=== PATIENT | male | born 2000 | race Hispanic/Latino ===

== ENCOUNTER 2021-02-10 00:29 | Emergency (ER) | payer OTHER ==
[2021-02-10 00:56] LABS: Urine Blood 3+ (Negative); Urine Glucose Negative (Negative); Urine Protein 1+ (Negative); Urine Specific Gravity 1.025 (1.005-1.030); Urine pH 7.5 (5.0-7.0)
[2021-02-10 01:01] LABS: Urine Bacteria <20 /HPF (NONE SEEN); Urine RBC 20-50 /HPF (NONE SEEN)
--- NOTE | 2021-02-10 02:12 | ER ---
Nurse's Notes [facility] Name: Baljit Jimenez Age: 20 yrs Sex: Male : 2000 Arrival Date: 02/10/2021 Time: 00:34 Bed 13 Private MD: Diagnosis: UTI/ Urinary tract infection, site not specified Presentation: 02/10 01:00 Chief complaint: Patient states: blood in urine, burning in urination. Coronavirus fu screen: Vaccine status: Patient reports being unvaccinated. Ebola Screen: No symptoms or risks identified at this time. Initial Sepsis Screen: Does the patient meet any 2 criteria? No. Patient's initial sepsis screen is negative. Does the patient have a suspected source of infection? No. Patient's initial sepsis screen is negative. Risk Assessment: Do you want to hurt yourself or someone else? Patient reports no desire to harm self or others. Onset of symptoms. Onset of symptoms is unknown. 01:00 Method Of Arrival: Ambulatory fu 01:00 Acuity: DENISSE 4 fu Triage Assessment: 01:07 General: Appears in no apparent distress. Behavior is calm, cooperative, appropriate fu for age. Pain: Denies pain. Historical: - Allergies: 01:06 No Known Allergies; fu - Home Meds: 01:06 None [Active]; fu - PMHx: 01:06 None; fu - PSHx: 01:06 None; fu - Immunization history:: Client reports having NOT received the Covid vaccine. Flu vaccine is not up to date. - Social history:: Smoking status: Patient reports the use of cigarette tobacco products, smokes one-half pack cigarettes per day. Screenin:10 Abuse screen: Denies threats or abuse. Nutritional screening: No deficits noted. fu Tuberculosis screening: No symptoms or risk factors identified. Fall Risk None identified. Assessment: 01:09 General: Appears in no apparent distress. Behavior is calm, cooperative, appropriate fu for age, Denies fever, feeling ill, fatigue, chills. Pain: Denies pain. Neuro: Level of Consciousness is awake, alert, obeys commands, Oriented to person, place, time, situation, Table Runner are equal bilaterally Moves all extremities. Gait is steady, Speech is normal, Facial symmetry appears normal. Cardiovascular: No deficits noted. Respiratory: No deficits noted. GI: No deficits noted. : Reports burning with urination, since 2-3 weeks ago blood in urine. Derm: No signs and/or symptoms reported regarding the dermatologic system. Musculoskeletal: No signs and/or symptoms reported regarding the musculoskeletal system. 01:45 Reassessment: Patient and/or family updated on plan of care and expected duration. Pain fu level reassessed. Patient is alert, oriented x 3, equal unlabored respirations, skin warm/dry/pink. 02:13 Reassessment: Patient and/or family updated on plan of care and expected duration. Pain fu level reassessed. Patient is alert, oriented x 3, equal unlabored respirations, skin warm/dry/pink. Provider in patient's room. Vital Signs: 01:00 BP 123 / 70; Pulse 67; Resp 16; Temp 98.2(O); Pulse Ox 100% on R/A; Weight 63.5 kg; fu Height 5 ft. 6 in. (167.64 cm) (R); Pain 0/10; 01:07 BP 123 / 70; Pulse 67; Resp 16; Temp 98.2(O); Pulse Ox 100% on R/A; Pain 0/10; fu 01:34 BP 117 / 71; Pulse 61; Resp 16; Pulse Ox 100% on R/A; Pain 0/10; fu 01:00 Body Mass Index 22.60 (63.50 kg, 167.64 cm) fu ED Course: 00:34 Patient arrived in ED. wm 00:36 [facility] Lug[facility]C [facility] kb 00:36 Emmett Naqvi MD is Attending Physician. kb 00:46 Miguelito Rodriguez, EDUARDO is Primary Nurse. fu 01:06 Triage completed. fu 01:08 Arm band placed on right wrist. fu 01:10 Patient has correct armband on for positive identification. Bed in low position. Call fu light in reach. Pulse ox on. NIBP on. 01:11 No provider procedures requiring assistance completed. fu 01:25 CT Stone Protocol In Process Unspecified. EDMS 02:19 Patient did not have IV access during this emergency room visit. fu Administered Medications: No medications were administered Outcome: 02:11 Discharge ordered by . kb 02:18 Discharged to home ambulatory. fu 02:18 Condition: good 02:18 Discharge instructions given to patient, Instructed on discharge instructions, follow up and referral plans. Demonstrated understanding of instructions, follow-up care, Prescriptions given X 1. 02:21 Patient left the ED. fu Signatures: Dispatcher [employer] Felicia Gonzalez FNP-C FNP-Ckb Umadhay, Felix RN RN Bettye Wagner Corrections: (The following items were deleted from the chart) 01:09 01:00 BP 123 / 70; Pulse 67bpm; Resp 16bpm; Pulse Ox 100% RA; Temp 98.2F Oral; Height 5 fu ft. 4 in. Reported; Pain 0/10; fu 02:13 02:12 Reassessment: Patient and/or family updated on plan of care and expected fu duration. Pain level reassessed. Patient is alert, oriented x 3, equal unlabored respirations, skin warm/dry/pink. fu
--- NOTE | 2021-02-10 02:12 | EDPHYS ---
Physician Documentation [facility] Name: Baljit Jimenez Age: 20 yrs Sex: Male : 2000 Arrival Date: 02/10/2021 Time: 00:34 Bed 13 Private MD: ED Physician Emmett Naqvi HPI: 02/10 00:43 This 20 yrs old Male presents to ER via Unassigned with complaints of Urinary kb Problem - Blood in urine. 00:43 The patient presents with urinary symptoms, dysuria. Onset: The symptoms/episode kb began/occurred 2 week(s) ago. Modifying factors: The symptoms are alleviated by nothing, the symptoms are aggravated by nothing. Associated signs and symptoms: Pertinent positives: dysuria, hematuria, Pertinent negatives: abdominal pain, constipation, diarrhea, fever, nausea, vomiting. Severity of symptoms: At their worst the symptoms were moderate, in the emergency department the symptoms are unchanged. The patient has not experienced similar symptoms in the past. The patient has not recently seen a physician. Pt reports hematuria, urgency and dysuria for 2-3 weeks. States he took some of his girlfriends antibiotics for a UTI, but is still have the symptoms. Had left flank pain that resolved after antibiotics. . Historical: - Allergies: 01:06 No Known Allergies; fu - Home Meds: 01:06 None [Active]; fu - PMHx: 01:06 None; fu - PSHx: 01:06 None; fu - Immunization history:: Client reports having NOT received the Covid vaccine. Flu vaccine is not up to date. - Social history:: Smoking status: Patient reports the use of cigarette tobacco products, smokes one-half pack cigarettes per day. ROS: 00:43 Constitutional: Negative for fever, chills, and weight loss. kb 00:43 : Positive for urinary symptoms, hematuria, burning with urination. 00:43 All other systems are negative. Exam: 00:43 Constitutional: This is a well developed, well nourished patient who is awake, alert, kb and in no acute distress. Head/Face: Normocephalic, atraumatic. ENT: Moist Mucous membranes Respiratory: Respirations even and unlabored. No increased work of breathing, no retractions or nasal flaring. Back: No spinal tenderness. No costovertebral tenderness. Full range of motion. Skin: Warm, dry with normal turgor. Normal color. MS/ Extremity: Pulses equal, no cyanosis. Neurovascular intact. Full, normal range of motion. Neuro: Awake and alert, GCS 15, oriented to person, place, time, and situation. Moves all extremities. Normal gait. Psych: Awake, alert, with orientation to person, place and time. Behavior, mood, and affect are within normal limits. 01:00 Abdomen/GI: Inspection: abdomen appears normal, Bowel sounds: normal, Palpation: soft, kb in all quadrants, mild abdominal tenderness, in the left lower quadrant. Vital Signs: 01:00 BP 123 / 70; Pulse 67; Resp 16; Temp 98.2(O); Pulse Ox 100% on R/A; Weight 63.5 kg; fu Height 5 ft. 6 in. (167.64 cm) (R); Pain 0/10; 01:07 BP 123 / 70; Pulse 67; Resp 16; Temp 98.2(O); Pulse Ox 100% on R/A; Pain 0/10; fu 01:34 BP 117 / 71; Pulse 61; Resp 16; Pulse Ox 100% on R/A; Pain 0/10; fu 01:00 Body Mass Index 22.60 (63.50 kg, 167.64 cm) fu MDM: 00:37 Patient medically screened. kb 00:42 Data reviewed: vital signs, nurses notes. Data interpreted: Pulse oximetry: on room air kb is 100 %. Interpretation: normal. 02:10 Counseling: I had a detailed discussion with the patient and/or guardian regarding: the kb historical points, exam findings, and any diagnostic results supporting the discharge/admit diagnosis, lab results, radiology results, the need for outpatient follow up, a family practitioner, to return to the emergency department if symptoms worsen or persist or if there are any questions or concerns that arise at home. 02/10 00:40 Order name: Urine Microscopic Only; Complete Time: 01:02 kb 02/10 00:56 Order name: Urine Dipstick-Ancillary; Complete Time: 00:58 EDMS 02/10 00:40 Order name: Urine Dipstick-Ancillary (obtain specimen); Complete Time: 00:56 kb 02/10 00:40 Order name: CT Stone Protocol kb 02/10 01:02 Order name: Urine Culture EDMS Administered Medications: No medications were administered Disposition: 07:37 Co-signature as Attending Physician, Emmett Naqvi MD. [email or web address] Disposition Summary: 02/10/21 02:11 Discharge Ordered Location: Home kb Condition: Stable kb Diagnosis - UTI/ Urinary tract infection, site not specified kb Followup: kb - With: Emergency Department - When: As needed - Reason: Worsening of condition Followup: kb - With: Private Physician - When: 2 - 3 days - Reason: Recheck today's complaints, Continuance of care, Re-evaluation by your physician Discharge Instructions: - Discharge Summary Sheet kb - Urinary Tract Infection, Adult, [id number] kb Forms: - Medication Reconciliation Form kb - Thank You Letter kb - Antibiotic Education kb - Prescription Opioid Use kb - Work release form fu Prescriptions: - Augmentin 875-125 mg Oral Tablet - take 1 tablet by ORAL route every 12 hours for 10 days; 20 tablet; Refills: 0, kb Product Selection Permitted Signatures: Dispatcher [employer] EDOH Felicia Lugo FNP-C FNP-Ckb Umadhay, Felix, RN RN fu Holmes, Maurice, MD MD [email or web address] Corrections: (The following items were deleted from the chart) 01:01 00:43 Constitutional: This is a well developed, well nourished patient who is awake, kb alert, and in no acute distress. Head/Face: Normocephalic, atraumatic. ENT: Moist Mucous membranes Respiratory: Respirations even and unlabored. No increased work of breathing, no retractions or nasal flaring. Abdomen/GI: Soft, non-tender. No distention Back: No spinal tenderness. No costovertebral tenderness. Full range of motion. Skin: Warm, dry with normal turgor. Normal color. MS/ Extremity: Pulses equal, no cyanosis. Neurovascular intact. Full, normal range of motion. Neuro: Awake and alert, GCS 15, oriented to person, place, time, and situation. Moves all extremities. Normal gait. Psych: Awake, alert, with orientation to person, place and time. Behavior, mood, and affect are within normal limits. kb
[2021-02-10 02:27] VITALS: TEMP 98.2; O2SAT 100
[2021-02-10 02:30] VITALS: BP 117/71
--- NOTE | 2021-02-10 14:49 | RAD REPORT ---
EXAM DESCRIPTION: CT Abdomen and Pelvis Without Intravenous Contrast CLINICAL HISTORY: The patient is 20 years old and is Male; HEMATURIA TECHNIQUE: Axial computed tomography images of the abdomen and pelvis without intravenous contrast. Sagittal and coronal reformatted images were created and reviewed. This CT exam was performed usi ng one or more of the following dose reduction techniques: automated exposure control, adjustment o f the mA and/or kV according to patient size, and/or use of iterative reconstruction technique. COMPARISON: No relevant prior studies available. FINDINGS: Limitations: Evaluation is limited by a paucity of intra-abdominal fat. Lung bases: Unremarkable. No mass. No consolidation. ABDOMEN: Liver: Unremarkable. Gallbladder and bile ducts: Gallbladder is contracted. No calcified stones. No ductal dilation. Pancreas: Unremarkable. No ductal dilation. Spleen: Unremarkable. No splenomegaly. Adrenals: Unremarkable. No mass. Kidneys and ureters: No evidence of nephrolithiasis. No hydronephrosis. Stomach and bowel: Unremarkable. No obstruction. No mucosal thickening. PELVIS: Appendix: No findings to suggest acute appendicitis. Bladder: There is the suggestion of mild diffuse bladder wall thickening, but the bladder is nond istended limiting evaluation. No stones. Reproductive: Unremarkable as visualized. ABDOMEN and PELVIS: Intraperitoneal space: Unremarkable. No free air. No significant fluid collection. Bones/joints: No acute fracture. No dislocation. Soft tissues: See above. Vasculature: Unremarkable. No abdominal aortic aneurysm. Lymph nodes: Unremarkable. No enlarged lymph nodes. IMPRESSION: 1. No evidence of nephrolithiasis. 2. There is the suggestion of mild diffuse bladder wall thickening, but the bladder is nondistended limiting evaluation. Correlate with any concern for cystitis. Electronically signed by: Shane Rivera MD 02/10/2021 1:59 AM CDT Due to temporary technical issues with the PACS/Fluency reporting system, reports are being signed by the in house radiologists without review as a courtesy to insure prompt reporting. The interpreting radiologist is fully responsible for the content of the report.
== END 2021-02-10 02:21 | disposition home or self-care (01) ==
LOC: ER 00:29
DX: N39.0 Urinary tract infection, site not specified (principal)
CPT/HCPCS: 74176; 76377; 81003; 81015; 87086; 87088; 99283

== ENCOUNTER 2021-12-03 21:24 | Emergency (ER) | payer OTHER ==
--- OUTSIDE RECORDS SUMMARY | 2021-12-03 21:26 | XMS REPORT | Continuity of Care Document ---
:2000 Author Organization [facility] t Address [address] [place] [address] Care Team Providers Name Role Phone CATHRYN Attending Clinician Unavailable Pradeep_Camryn Attending Clinician Unavailable A_Neville Attending Clinician Unavailable MARYLIN CHARLES Attending Clinician Unavailable Konrad Attending Clinician Unavailable CATHRYN Admitting Clinician Unavailable Pradeep_Camryn Admitting Clinician Unavailable Callie_Bymike Admitting Clinician Unavailable Shield Admitting Clinician Unavailable Payers Payer Name Policy Type Policy Number Effective Date Expiration Date [facility] [id number] [facility] (MEDICAID REPLACEMENT - HMO) [facility] [id number] [facility] (MEDICAID REPLACEMENT - HMO) [facility] [id number] 2016 [facility] MEDICAID 00:00:00 Problems Condition Condition Condition Status Onset Resolution Last Treating Co mments Source Name Details Category Date Date Treatment Clinician Date Pubertal Pubertal Problem Active 2019-04 [place] [facility] gynecomast Gynecomast 1-25 da ia ia 00:00: Medical 00 Group Unintentio Unintentio Problem Active 2018-04 [facility] nal weight nal Weight 2-02 da loss Loss 00:00: Medical 00 Group Well child Well Child Problem Active 2018-04 [facility] 2-02 da 00:00: Medical 00 Group Upper Upper Problem Active [place] respirator Respirator da y y Medical infection Infection Grou p Contact Contact Problem Active [facility] dermatitis Dermatitis [facility] Abdominal Abdominal Problem Active [facility] pain Pain [facility] Allergies, Adverse Reactions, Alerts Allergy Allergy Status Severity Reaction(s) Onset Inactive Treating Comm ents Source Name Type Date Date Clinician NO KNOWN Drug Active Univers ALLERGIE Class ity of [facility] Social History Smoking Status Start Date Stop Date Source Current Some Day Smoker [facility] Medications This patient has no known medications. Immunizations Ordered Immunization Filled Immunization Date Status Commen ts Source Name Name influenza, influenza, 2019-03-21 Completed [facility] injectable, injectable, 17:56:31 Medical Grou p quadrivalent, quadrivalent, preservative free preservative free meningococcal MCV4P meningococcal MCV4P 2019-03-21 Completed [facility] 17:55:49 Medical Group Vital Signs Vital Name Observation Time Observation Value Comments Source BP Diastolic 2020-10-29 00:00:00 65 mm[Hg] [facility] Height 2020-10-29 00:00:00 65.5 [in_i] [facility] BMI (Body Mass 2020-10-29 00:00:00 21 kg/m2 [facility] [employer] [facility] Group BP Systolic 2020-10-29 00:00:00 107 mm[Hg] [facility] Body Weight 2020-10-29 00:00:00 2049.6 [oz_av] [facility] BP Diastolic 2020-04-02 00:00:00 73 mm[Hg] [facility] Height 2020-04-02 00:00:00 67 [in_i] [facility] BMI (Body Mass 2020-04-02 00:00:00 20.9 kg/m2 [facility] [employer] [facility] Group BP Systolic 2020-04-02 00:00:00 115 mm[Hg] [facility] Body Weight 2020-04-02 00:00:00 2137 [oz_av] [facility] BP Diastolic 2020-03-14 00:00:00 74 mm[Hg] [facility] Height 2020-03-14 00:00:00 67 [in_i] [facility] BMI (Body Mass 2020-03-14 00:00:00 20.5 kg/m2 [facility] [employer] [facility]) Group BP Systolic 2020-03-14 00:00:00 118 mm[Hg] [facility] Body Weight 2020-03-14 00:00:00 2096 [oz_av] [facility] BP Diastolic 2019-06-08 00:00:00 67 mm[Hg] [facility] Height 2019-06-08 00:00:00 67 [in_i] [facility] BMI (Body Mass 2019-06-08 00:00:00 20.4 kg/m2 [facility] [employer] [facility] Group BP Systolic 2019-06-08 00:00:00 102 mm[Hg] [facility] Body Weight 2019-06-08 00:00:00 2086 [oz_av] [facility] BP Diastolic 2019-05-24 00:00:00 78 mm[Hg] [facility] Height 2019-05-24 00:00:00 67 [in_i] [facility] BMI (Body Mass 2019-05-24 00:00:00 20.4 kg/m2 [facility] [employer] [facility] Group BP Systolic 2019-05-24 00:00:00 113 mm[Hg] [facility] Body Weight 2019-05-24 00:00:00 2088 [oz_av] [facility] BP Diastolic 2019-04-28 00:00:00 71 mm[Hg] [facility] Height 2019-04-28 00:00:00 67 [in_i] [facility] BMI (Body Mass 2019-04-28 00:00:00 20.4 kg/m2 [facility] [employer] [facility] BP Systolic 2019-04-28 00:00:00 110 mm[Hg] [facility] Body Weight 2019-04-28 00:00:00 2084 [oz_av] [facility] BMI (Body Mass 2019-01-27 00:00:00 21.7 kg/m2 [facility] [employer] [facility] BP Systolic 2019-01-27 00:00:00 95 mm[Hg] [facility] Body Weight 2019-01-27 00:00:00 2184 [oz_av] [facility] BP Diastolic 2019-01-27 00:00:00 55 mm[Hg] [facility] Height 2019-01-27 00:00:00 66.5 [in_i] [facility] Procedures Procedure Date / Time Performed Performing Clinician Sour e CT, head, w/o contrast 2020-10-29 00:00:00 [facility] Plan of Care Planned Activity Planned Date Details Comments Source Instructions [facility] Encounters Start End Encounter Admission Attending Care Care Encounter Source Date/Time Date/Time Type Type Clinicians Facility Department ID 2021-11-14 2021-11-14 Outpatient STEPH_EMIR BORGES [id number] [place] 00:00:00 00:00:00 FOUZIA 07Corie [facility] 2020-10-29 2020-10-29 Outpatient Hawkins_M [facility] MMG [id number] [place] 03:04:00 03:04:00 0712 [facility] 2020-10-29 2020-10-29 Beat[place] [facility] [place] - [id number] [facility] 00:00:00 00:00:00 [facility] [employer] TRUCKER: [address] [facility] [address], [place] [address] , Ph. 2020-04-25 2020-04-25 Outpatient Hawkins_M MMG MMG [id number] [place] 09:46:00 09:46:00 0106 [facility] 2020-04-25 2020-04-25 Outpatient Hawkins_M MM[facility] MMG [id number] [place] 09:46:00 09:46:00 0219 [facility] 2020-04-02 2020-04-02 Outpatient Hawkins_M MMG MMG [id number] [place] 10:28:00 10:28:00 1214 [facility] 2020-04-02 2020-04-02 Outpatient Hawkins_M MMG MMG [id number] [place] 10:28:00 10:28:00 1216 [facility] 2020-04-02 2020-04-02 Beatrice [facility] [place] - [id number] [facility] 00:00:00 00:00:00 [facility] [employer] TRUCK[facility]: [address] [facility] [address], [place] [address] , Ph. 2020-03-14 2020-03-14 Outpatient A_Byrd MMG MMG [id number] [place] 12:36:00 12:36:00 1125 [facility] 2020-03-14 2020-03-14 Tc N MMG [place] - [id number] [facility] 00:00:00 00:00:00 MD Neville: [address], [place] [address] , Ph. 2020-03-13 2020-03-13 Outpatient A_Byrd MMG MMG [id number] [place] 03:44:00 03:44:00 1124 [facility] 2019-06-14 2019-06-14 Outpatient Rhina MELVIN, [facility] [id number] Univers 13:00:00 13:00:[address] [facility] 2019-06-08 2019-06-08 Outpatient A_Byrd MMG MMG [id number] [place] 05:46:00 05:46:00 0219 [facility] 2019-06-08 2019-06-08 Tc N MMG [place] - [id number] [facility] 00:00:00 00:00:00 MD Neville: [address], [place] [address] , Ph. 2019-05-25 2019-05-25 Outpatient Shield MMG MMG [id number] [place] 06:41:00 06:41:00 0205 [facility] 2019-05-24 2019-05-24 Outpatient Shield MMG MMG [id number] [place] 10:48:00 10:48:00 0204 Medical [facility] 2019-05-24 2019-05-24 Tc N MMG [place] - [id number] [facility] 00:00:00 00:00:00 MD Neville: [address], [place] [address] , Ph. 2019-04-28 2019-04-28 Outpatient Shield MMG MMG [id number] [place] 09:28:00 09:28:00 0109 Medical Group 2019-04-28 2019-04-28 Tc N MMG [place] - [id number] [facility] 00:00:00 00:00:00 MD Neville: Discovery jennings [address], [facility] [place] [address] , Ph. 2019-04-15 2019-04-15 Outpatient Shield [facility] [id number] [place] 10:28:00 10:28:00 0108 [facility] 2019-01-27 2019-01-27 [facility] [place] - [id number] [facility] 00:00:00 00:00:00 Discovery michaela Silvestre FREIGHT TRUCKER: [address] [facility] - [address], [facility], [place] [address] , Ph. Results Test Description Test Time Test Comments Results Result Comments Source CBC W Auto Differential panel - Blood 2019-04-28 10:28:00 Test Item Value Reference Range Interpretation Comme nts white blood count (test code = white blood count) 7.2 K/uL 4.0- 12.3 red blood count (test code = red blood count) 5.03 M/uL 3.80-5.8 0 hemoglobin (test code = hemoglobin) 14.9 g/dL 13-16 hematocrit (test code = hematocrit) 46.0 % 35.0-51.0 Erythrocyte mean corpuscular volume [Entitic volume] (test 91.5 fL 79-98 code = 89785-0) mean corpuscular hemoglobin (test code = mean corpuscular 29.6 pg 26.8-33.4 hemoglobin) mean corpuscular HGB conc (test code = mean corpuscular HGB 32.4 g/ dL 32-36 conc) red cell distribution width (test code = red cell 13.1 % 11.5 -14.0 distribution width) platelet count (test code = platelet count) 282 K/uL 175-450 mean platelet volume (test code = mean platelet volume) 9.4 fL 9.4-12.6 Neutrophils.segmented/100 leukocytes in Blood (test code = 39.2 % 44.7-82.4 L 80702-1) Granulocytes Immature [#/volume] in Blood (test code = 0.0 K/uL 0.0-0.03 46370-7) lymphocyte% (test code = lymphocyte%) 48.0 % 10.0-50.0 mono % (test code = mono %) 7.1 % 3.0-6.0 H eos % (test code = eos %) 5.0 % 0.0-3.0 H Basophils/100 leukocytes in Unspecified specimen (test code 0.6 % 0.0-1.0 = 73611-0) Neutrophils.band form [#/volume] in Blood (test code = 2.80 K/uL 1.5-9.5 57364-4) Lymphocytes [#/volume] in Unspecified specimen by Automated 3.4 K/u L 1.1-6.0 count (test code = 92683-1) mono # (test code = mono #) 0.51 K/uL 0.30-0.82 eos # (test code = eos #) 0.36 K/uL 0.04-0.54 basophil # (test code = basophil #) 0.04 K/uL 0.01-0.08 NRBC% (test code = NRBC%) 0 /100 WBC 0-0.2 NRBC# (test code = NRBC#) 0 K/uL [facility] [Mass/volume] in [id number] 10:28:00 Test Item Value Reference Range Interpretation Comments Hemoglobin A1c [Mass/volume] in Blood 5.5 % 4.0-6.0 (test code = 55902-1) [facility] 2000 panel - Serum or Plasma 2019-04-28 10:28:00 Test Item Value Reference Range Interpretation Comments glucose (test code = glucose) 97 mg/dL 60-100 Urea nitrogen [Mass/volume] in 15 mg/dL 5-18 Serum or Plasma (test code = 3094-0) osmolality calculated,serum (test 280 mOsm/kg 280-300 code = osmolality calculated,serum) creatinine (test code = 0.9 mg/dL 0.57-0.87 H creatinine) glomerular filtration rate (test >60.00 code = glomerular filtration rate) Urea nitrogen/Creatinine [Mass 16.7 12-20 Ratio] in Serum or Plasma (test code = 3097-3) sodium level (test code = sodium 140 mmol/L 135-145 level) Potassium [Moles/volume] in Body 4.5 mmol/L 3.5-5.2 fluid (test code = 2821-7) chloride level (test code = 99 mmol/L 98-108 chloride level) CO2 (test code = CO2) 29 mmol/L 21-32 anion gap (test code = anion gap) 16.5 mEq/L 12-20 calcium level (test code = 9.5 mg/dL 8.4-10.2 calcium level) total protein (test code = total 7.2 g/dL 6.0-8.0 protein) albumin (test code = albumin) 4.9 g/dL 3.2-4.5 H globulin (test code = globulin) 2.3 gm/dL A/G ratio (test code = A/G ratio) 2.1 >1.0 bilirubin,total (test code = <0.3 0.0-1.0 bilirubin,total) AST/SGOT (test code = AST/SGOT) 16 U/L 15-40 Alanine aminotransferase 10 U/L 0-41 [Enzymatic activity/volume] in Serum or Plasma (test code = 1742-6) Alkaline phosphatase [Enzymatic 55 U/L 0-390 activity/volume] in Serum or Plasma (test code = 6768-6) [facility] [Units/volume] in Serum or [id number] 10:28:00 Test Item Value Reference Range Interpretation Comments Thyrotropin [Units/volume] in 1.78 uIU/mL 0.530-3.590 Serum or Plasma (test code = 3016-3) [facility]
--- NOTE | 2021-12-03 23:53 | ER ---
Nurse's Notes [facility] Name: Baljit Jimenez Age: 21 yrs Sex: Male : 2000 Arrival Date: 12/03/2021 Time: :27 Bed Waiting Private MD: Diagnosis: SARS-associated coronavirus as the cause of diseases classified elsewhere Presentation: 12/03 22:03 Chief complaint: Cough, sore throat, runny nose, and headache x 2-3 days. Coronavirus hb screen: Client presents with at least one sign or symptom that may indicate coronavirus-19. Standard/surgical mask placed on the client. Provider contacted for isolation considerations. Ebola Screen: No symptoms or risks identified at this time. Initial Sepsis Screen: Does the patient meet any 2 criteria? No. Patient's initial sepsis screen is negative. Does the patient have a suspected source of infection? No. Patient's initial sepsis screen is negative. Risk Assessment: Do you want to hurt yourself or someone else? Patient reports no desire to harm self or others. Onset of symptoms was December 01, 2021. 22:03 Method Of Arrival: Ambulatory hb 22:03 Acuity: DENISSE 4 hb Historical: - Allergies: 22:04 No Known Allergies; hb - Home Meds: 22:04 None [Active]; hb - PMHx: 22:04 None; hb - PSHx: 22:04 None; hb - Immunization history:: Client reports having NOT received the Covid vaccine. - Social history:: Smoking status: Patient reports the use of cigarette tobacco products, denies chronic smoking, but will smoke occasionally. Assessment: 12/04 00:06 Reassessment: Patient is alert, oriented x 3, equal unlabored respirations, skin bb warm/dry/pink. pt seen by this RN at discharge pt verbalized understanding of and agrees to plan of care discharge instructions given pt ambulated with steady gait to exit. Vital Signs: 12/03 22:03 Pulse 56; Resp 16; Temp 98.9; Pulse Ox 100% on R/A; Weight 61.23 kg; Height 5 ft. 6 in. hb (167.64 cm); Pain 5/10; 22:03 Body Mass Index 21.79 (61.23 kg, 167.64 cm) hb ED Course: :27 Patient arrived in ED. ag3 22:04 Triage completed. hb 22:04 Arm band placed on. hb 22:09 COVID-19 SARS RT PCR (Document "Date of Onset" if Symptomatic) Sent. bb 22: Strep Sent. bb 22: Flu Sent. bb 22:10 Indra Odell PA is PHCP. cp 22:10 Emmett Naqvi MD is Attending Physician. cp Administered Medications: No medications were administered Outcome: 23:53 Discharge ordered by . cp 12/04 00:06 Discharged to home ambulatory. bb Condition: stable Discharge instructions given to patient, Instructed on discharge instructions, follow up and referral plans. medication usage, Demonstrated understanding of instructions, follow-up care, medications, Prescriptions given X 2. 00:07 Patient left the ED. bb Signatures: Ania Perera RN RN bb Indra Odell PA PA cp Daria Clemens, RN RN Monica Dye ag3
--- NOTE | 2021-12-03 23:54 | EDPHYS ---
Physician Documentation [facility] Name: Baljit Jimenez Age: 21 yrs Sex: Male : 2000 Arrival Date: 12/03/2021 Time: 21:27 Bed Waiting Private MD: ED Physician Emmett Naqvi HPI: 12/03 23:30 This 21 yrs old Male presents to ER via Ambulatory with complaints of Sore cp Throat, Runny Nose. 23:30 The patient presents with sore throat. The patient describes throat pain as scratchy. cp Onset: The symptoms/episode began/occurred 3 day(s) ago. Severity of symptoms: in the emergency department the symptoms are unchanged, despite home interventions. Associated signs and symptoms: Pertinent positives: cough, headache, rhinorrhea, Pertinent negatives chest pain, diarrhea, fever, vomiting, abdominal pain. Historical: - Allergies: 22:04 No Known Allergies; hb - Home Meds: 22:04 None [Active]; hb - PMHx: 22:04 None; hb - PSHx: 22:04 None; hb - Immunization history:: Client reports having NOT received the Covid vaccine. - Social history:: Smoking status: Patient reports the use of cigarette tobacco products, denies chronic smoking, but will smoke occasionally. ROS: 23:33 Constitutional: Negative for body aches, chills, fever, poor PO intake. cp 23:33 Eyes: Negative for injury, pain, redness, and discharge. cp 23:33 ENT: Positive for rhinorrhea, sore throat, Negative for drainage from ear(s), ear pain, difficulty swallowing, difficulty handling secretions. 23:33 Cardiovascular: Negative for chest pain, palpitations. 23:33 Respiratory: Positive for cough, Negative for shortness of breath, wheezing. 23:33 Abdomen/GI: Negative for abdominal pain, vomiting, diarrhea, constipation. 23:33 Skin: Negative for cellulitis, rash. 23:33 Neuro: Positive for headache, Negative for altered mental status, weakness. 23:33 All other systems are negative. Exam: 23:35 Constitutional: The patient appears in no acute distress, alert, awake, comfortable, cp non-toxic, well developed, well nourished. 23:35 Head/Face: Normocephalic, atraumatic. cp 23:35 Eyes: Periorbital structures: appear normal, Conjunctiva: normal, no exudate, no injection, Sclera: no appreciated abnormality, Lids and lashes: appear normal, bilaterally. 23:35 ENT: External ear(s): are unremarkable, Ear canal(s): are normal, clear, TM's: dullness, bilaterally, Nose: is normal, Mouth: Lips: moist, Oral mucosa: pink and intact, moist, Posterior pharynx: Airway: no evidence of obstruction, patent, Tonsils: no enlargement, no exudate, swelling, is not appreciated, erythema, that is mild, exudate, is not appreciated, Voice: is normal. 23:35 Neck: ROM/movement: is normal, is supple, without pain, no range of motions limitations, no meningismus, Lymph nodes: no appreciated lymphadenopathy. 23:35 Chest/axilla: Inspection: normal. 23:35 Cardiovascular: Rate: bradycardic, Rhythm: regular. 23:35 Respiratory: the patient does not display signs of respiratory distress, Respirations: normal, no use of accessory muscles, no retractions, labored breathing, is not present, Breath sounds: are clear throughout, no decreased breath sounds, no stridor, no wheezing. 23:35 Abdomen/GI: Inspection: abdomen appears normal, Palpation: abdomen is soft and non-tender, in all quadrants. Vital Signs: 22:03 Pulse 56; Resp 16; Temp 98.9; Pulse Ox 100% on R/A; Weight 61.23 kg; Height 5 ft. 6 in. hb (167.64 cm); Pain 5/10; 22:03 Body Mass Index 21.79 (61.23 kg, 167.64 cm) hb MDM: 23:30 Differential diagnosis: apthous stomatitis, group A strep tonsillitis, influenza, cp mononucleosis, peritonsillar abscess retropharyngeal abcess tonsillitis, uvulitis. 23:53 Patient medically screened. cp 23:53 Data reviewed: vital signs, nurses notes, lab test result(s). cp 23:53 Counseling: I had a detailed discussion with the patient and/or guardian regarding: the cp historical points, exam findings, and any diagnostic results supporting the discharge/admit diagnosis, lab results, to return to the emergency department if symptoms worsen or persist or if there are any questions or concerns that arise at home. ED course: VSS. Patient appears non-toxic and no signs of respiratory distress. Will discharge to home for continued monitoring. 12/03 22:05 Order name: Flu; Complete Time: : hb 12/03 22:05 Order name: Strep; Complete Time: : hb 12/03 22:05 Order name: COVID-19 SARS RT PCR (Document "Date of Onset" if Symptomatic); Complete hb Time: :12/03 23:11 Order name: Throat Culture EDMS Administered Medications: No medications were administered Disposition Summary: 12/03/21 23:53 Discharge Ordered Location: Home cp Problem: new cp Symptoms: are unchanged cp Condition: Stable cp Diagnosis - SARS-associated coronavirus as the cause of diseases classified elsewhere cp Followup: cp - With: Private Physician - When: 1 - 2 days - Reason: Worsening of condition Discharge Instructions: - Discharge Summary Sheet cp - Form - Excuse from Work, School, or Physical Activity cp - COVID-19 cp - Things to Know about the COVID-19 Pandemic - [facility] cp - 10 Things You Can Do to Manage Your COVID-19 Symptoms at Home - [facility] cp - COVID-19: Quarantine vs. Isolation - [facility] cp - Prevent the Spread of COVID-19 if You Are Sick - [facility] cp Forms: - Medication Reconciliation Form cp - Thank You Letter cp - Antibiotic Education cp - Prescription Opioid Use cp - Work release form mw2 Prescriptions: - Bromfed DM 2-30-10 mg/5 mL Oral syrup - take 10 milliliter by ORAL route every 6 hours; 180 milliliter; Refills: 0, cp Product Selection Permitted - Ibuprofen 600 mg Oral Tablet - take 1 tablet by ORAL route every 8 hours As needed take with food; 30 tablet; cp Refills: 0, Product Selection Permitted Signatures: Dispatcher [employer] EDMS Indra Odell PA PA cp Daria Clemens RN RN
[2021-12-04 01:07] VITALS: TEMP 98.9; O2SAT 100
== END 2021-12-04 00:07 | disposition home or self-care (01) ==
LOC: ER 21:24
DX: U07.1 COVID-19 (principal); F17.210 Nicotine dependence, cigarettes, uncomplicated
CPT/HCPCS: 87070; 87081; 87804 ×2; U0003; 99283